=== PATIENT | male | born 1955 | race Caucasian/White ===

== ENCOUNTER 2020-09-11 10:31 | Day surgery (SDC) | payer MEDICARE ==
[~2020-09-11 10:31] MED LIST: ASPIRIN81 MG PO; AVAPRO150 MG PO; CLOPIDOGREL75 MG PO; COZAAR50 MG OR; CRESTOR40 MG PO; DIOVAN80 MG PO; FLEXERIL10 MG PO; GABAPENTIN300 MG PO; HYDROCODONE BIT1 TA7 PO; INVOKANA300 MG PO; ISOSORBIDE MONO30 MG PO; JANUVIA100 MG PO; LEVEMIR FL100 UNIT/M SC; LEVEMIR FLEXPEN SC; LIPITOR20 MG PO; LOPID600 MG PO; LYRICA100 MG PO; LYRICA75 MG PO; METFORMIN500 MG PO; METOPROL TAR25 M1 PO; METOPROLOL SUCC50 MG PO; NITROSTAT0.3 MG SL; NORCO1 TA1 PO; NORCO1 TAB PO; NOVOLOG FL100 UNIT/M SC; NOVOLOG FLEXPEN SC; NOVOLOG MIX100 U/ML SC; PRALUENT 150 MG/ML; PROTONIX20 M1 PO; RYBELSUS3 MG; TESTOST CYP200 MG/ML IM; TRIAM/NYSTAT EX; TRICOR145 MG OR; VALSARTAN160 MG PO; VASCEPA1 GM PO; XARELTO10 MG PO
[2020-09-11 14:00] VITALS: BP 133/70
== END 2020-09-11 14:15 | disposition home or self-care (01) ==
LOC: ORM 10:31
PROVIDERS: ATTEND Surgery
PROC: 0DBP3ZZ Excision of Rectum, Percutaneous Approach (ICD-10-PCS; principal; 2020-09-11)
DX: K61.1 Rectal abscess (principal); E11.9 Type 2 diabetes mellitus without complications; I10 Essential (primary) hypertension; E78.5 Hyperlipidemia, unspecified; Z79.4 Long term (current) use of insulin
CPT/HCPCS: C9290; J0131

== ENCOUNTER 2021-12-04 07:59 | Day surgery (SDC) | payer MEDICARE ==
[~2021-12-04] VITALS: Ht 175.3 cm; Wt 130.2 kg
[~2021-12-04 07:59] MED LIST changes: +PLAVIX75 MG PO; +PRALUENT150 MG IJ; +TRESIBA100 UNIT/M IJ
[2021-12-04 10:54] VITALS: BP 108/62
== END 2021-12-04 11:20 | disposition home or self-care (01) ==
LOC: ENDO 07:59 → ORM 09:40 → ENDO 09:40 → ORM 10:30 → ENDO 11:20
PROVIDERS: ATTEND Surgery
PROC: 0DBN8ZX Excision of Sigmoid Colon, Via Natural or Artificial Opening Endoscopic, Diagnostic (ICD-10-PCS; principal; 2021-12-04)
DX: Z12.11 Encounter for screening for malignant neoplasm of colon (principal); D12.5 Benign neoplasm of sigmoid colon; K57.30 Diverticulosis of large intestine without perforation or abscess without bleeding; K64.4 Residual hemorrhoidal skin tags; K64.8 Other hemorrhoids; I10 Essential (primary) hypertension; E11.9 Type 2 diabetes mellitus without complications; Z79.4 Long term (current) use of insulin; Z86.010 Personal history of colon polyps; Z83.71 Family history of colonic polyps